=== PATIENT | female | born 1995 | race Caucasian/White ===

== ENCOUNTER → 2016-10-29 | Outpatient (CLI) | payer BC ==
[~2016-10-29] MED LIST: BIRTH CONTROL PO; DCS100C PO; HYDR-3714 PO; ONDA-42 SL
--- OUTSIDE RECORDS SUMMARY | 2016-10-29 09:02 | XMS REPORT | Continuity of Care Document ---
Author Author [facility] Organization [facility] Address Unknown Phone Unavailable Care Team Providers Care Hay Chopper Name Role Phone Mirta Nelson PCP [phone] Source Comments Some departments are not documenting in the electronic medical record. If you do not see the information that you expected, contact Release of Information in the Health Information Management department at [phone] for further assistance in locating additional records.[facility] Active Allergies and Adverse Reactions Allergen Noted Date Severity Reactions Comments Mold 01/31/2014 Low RHINITIS Seasonal Allergies 01/31/2014 Low RHINITIS Current Medications Prescription Sig. Disp. Refills Start End Date Status Date CETIRIZINE HCL (ZYRTEC Take by mouth. Active PO) NORGESTIMATE-ETHINYL Take by mouth. 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: Incidental finding on radiographic work up for left knee pain Social History Tobacco Use Types Packs/Day Years Used Date Never Smoker Alcohol Use Drinks/Week oz/Week Comments Yes 0.0 1-2 per month Last Filed Vital Signs Vital Sign Reading Time Taken Blood Pressure 125/73 07/31/2014 3:15 PM [employer] Pulse 84 07/31/2014 3:15 PM [employer] Temperature 36.7 C (98 F) 07/31/2014 3:15 PM [employer] Respiratory Rate 12 01/31/2014 4:23 PM CDT Height 1.588 m (5' 2.5") 07/31/2014 3:15 PM [employer] Weight 59.875 kg (132 lb) 07/31/2014 3:15 PM [employer] Body Mass Index 23.74 07/31/2014 3:15 PM [employer] Oxygen Saturation 100% 07/31/2014 3:15 PM [employer] Plan of Care Health Maintenance Due Date Last Done Comments Physical (Comprehensive) 2001 Exam Hpv Vaccines (#1) 2005 Pertussis Vaccine 2005 Tetanus Vaccine 2011 Cervical Cancer Screening 2015 Influenza Vaccine 04/16/2016 Results from Last 3 Months Not on file
--- NOTE | 2016-10-29 09:36 | Diagnostic Imaging Report ---
Clinical indication: Patient with enlarged thyroid. COMPARISONS: None. FINDINGS: THYROID NODULES: There is a 3 mm x 3 mm x 2 mm hypoechoic nodule in the mid to inferior portion of the left thyroid gland. There is a 3 mm x 3 mm x 2 mm hypoechoic nodule in the mid to inferior portion of the right thyroid gland. These nodules demonstrate no significant doppler flow. THYROID GLAND: Besides the thyroid nodules, the thyroid gland has normal size, shape and echogenicity. The right lobe measures 5.4 x 1.2 x 1.6 cm and the left lobe measures 5.1 x 1.2 x 1.6 cm in their three dimensions. ISTHMUS: The isthmus is unremarkable and measures 2 mm in thickness. Impression: Two hypoechoic nodules, less than 3 mm or less in size, in the bilateral thyroid gland regions. Otherwise unremarkable thyroid ultrasound exam. Dictated by: Dictated on workstation # [id number]
== END ==
LOC: RAD 08:59
PROVIDERS: ATTEND Nurse Practitioner Primary Care
DX: E01.0 Iodine-deficiency related diffuse (endemic) goiter (principal)
CPT/HCPCS: 76536

== ENCOUNTER → 2016-12-14 | Outpatient (CLI) | payer BC ==
--- NOTE | 2016-12-14 11:33 | Diagnostic Imaging Report ---
PROCEDURE: US Thyroid. TECHNIQUE: Multiple real-time grayscale images were obtained of the thyroid in various projections. INDICATION: Followup thyroid nodules. COMPARISON: 10/29/2016. DISCUSSION: 3 mm hypoechoic nodules are again noted bilaterally. Nodules are too small to further characterize though statistically benign. Recommend one-year sonographic followup to document stability. Thyroid gland is normal in size and echotexture otherwise. The right thyroid measures 4.8 x 2.0 x 1.5 cm. The left thyroid measures 5.0 x 1.0 x 1.4 cm. No new nodule identified. No abnormal lymph nodes identified. IMPRESSION: 1. 3 mm hypoechoic nodules within the bilateral thyroid gland are statistically benign though difficult to characterize given their diminutive size. Recommend one-year sonographic followup. Dictated by: Dictated on workstation # [id number]
== END ==
LOC: RAD 10:46
PROVIDERS: ATTEND Nurse Practitioner Primary Care
DX: E04.2 Nontoxic multinodular goiter (principal)
CPT/HCPCS: 76536